=== PATIENT | female | born 1985 | race African-American/Black ===

== ENCOUNTER 2018-12-28 10:57 | Emergency (ER) | payer OTHER ==
[2018-12-28] MEDS: IBUPROFEN 800 MG TAB PO (12:59)
[2018-12-28] MEDS: DEXAMETHASONE 10 MG/ML 1 ML INJ IM (12:59)
[2018-12-28] MEDS: PENICILLIN G BENZ 1.2 MIL UNIT SYG IM (13:15)
== END 2018-12-28 13:40 | disposition home or self-care (01) ==
LOC: FTE 10:57
DX: J02.0 Streptococcal pharyngitis (principal)
CPT/HCPCS: 96372; 99284-25